=== PATIENT | female | born 1990 | race Two or more races ===

== ENCOUNTER 2024-04-29 06:43 | Inpatient (IN) | payer MEDICAID ==
[2024-04-29] MEDS ORDERED: Lidocaine 1% 50 ML MDV INJECT PRN (07:10)
[2024-04-29] MEDS ORDERED: Sodium Chloride 0.9% 10 ML Syringe FLUSH PRN (07:10)
[2024-04-29] MEDS ORDERED: Ondansetron 4 MG/2 ML SDV IVPUSH PRN (07:10)
[2024-04-29] MEDS ORDERED: Oxytocin/0.9 % Sodium Chloride 30 UNIT/500 ML BAG IV SCH (07:15)
[2024-04-29 07:46] LABS: BASOPHILS PERCENT AUTO 0.1 % (0.0-1.0); EOSINOPHILS ABSOLUTE AUTO 0.1 K/mm3 (0.0-0.4); EOSINOPHILS PERCENT AUTO 0.8 % (0.0-6.0); HEMATOCRIT 31.8 % (37.0-47.0); HEMOGLOBIN 10.2 gm/dl (12.0-16.0); IMMATURE GRAN ABSOLUTE AUTO 0.04 K/mm3 (0.00-0.05); IMMATURE GRAN PERCENT AUTO 0.5 % (0.0-0.4); LYMPHOCYTES ABSOLUTE AUTO 1.2 K/mm3 (1.0-4.8); LYMPHOCYTES PERCENT AUTO 14.6 % (24.0-44.0); MEAN CORPUSCULAR HEMOGLOBIN 26.9 pg (28.0-32.0); MEAN CORPUSCULAR HGB CONC 32.1 g/dl (32.0-36.0); MEAN CORPUSCULAR VOLUME 83.9 fl (83.0-99.0); MONOCYTES ABSOLUTE AUTO 0.7 K/mm3 (0.0-0.8); MONOCYTES PERCENT AUTO 8.4 % (0.0-8.0); NEUTROPHILS ABSOLUTE AUTO 6.4 K/mm3 (1.8-7.7); NEUTROPHILS PERCENT AUTO 75.6 % (41.0-71.0); PLATELET COUNT,PLT 147 K/mm3 (150-400); RED BLOOD CELL COUNT 3.79 M/mm3 (4.10-5.30); WHITE BLOOD CELL COUNT,WBC 8.45 K/mm3 (3.9-11.3)
[2024-04-29] MEDS: Misoprostol 25 MCG (1/4 of 100 MCG) Tab PO SCH (08:00)
[2024-04-29] MEDS: Lactated Ringers 1,000 ML IV SCH (13:00)
[2024-04-29] MEDS: Oxytocin/0.9 % Sodium Chloride 30 UNIT/500 ML BAG IV SCH (13:10)
[2024-04-29] MEDS: Nalbuphine 10 MG/1 ML Vial IVPUSH PRN (17:12)
[2024-04-29] MEDS: Bupivacaine/fentaNYL/NS 100 ML Bag EPIDUR PRN (21:23)
[2024-04-30] MEDS: ePHEDrine 50 MG/ML SDV IVPUSH PRN (01:19)
[2024-04-30] MEDS: Calcium Carbonate 500 MG Tab.Chew PO PRN (02:48)
[2024-04-30] MEDS: diphenhydrAMINE 50 MG/ML SDV IVPUSH PRN (03:57)
[2024-04-30] MEDS ORDERED: ceFAZolin 2 GM in Sodium Chloride 0.9% 50 ML IV ONE (07:31)
[2024-04-30] MEDS ORDERED: Azithromycin 500 MG in Sodium Chloride 0.9% 250 ML IV ONE (07:31)
[2024-04-30] MEDS ORDERED: Metoclopramide 10 MG/2 ML SDV IVPUSH ONE (07:31)
[2024-04-30] MEDS ORDERED: Citric Acid/Sodium Citrate Solution 30 ML Cup PO ONE (07:31)
[2024-04-30] MEDS ORDERED: ceFAZolin 2 GM Vial IVPUSH ONE (07:45)
[2024-04-30 14:31] LABS: PH,UMBILICAL ARTERIAL 7.23 (7.22-7.32)
[2024-04-30 14:32] LABS: BICARBONATE,ARTERIAL UMBILICAL 23.3 (24-26); BICARBONATE,VENOUS UMBILICAL 18.8 (19-24); PCO2 UMBILICAL ARTERIAL 57.4 (42-58); PCO2 UMBILICAL VENOUS 38.2 (32.8-38.6); PH,UMBILICAL VENOUS 7.31 (7.28-7.40)
[2024-04-30] MEDS: Ibuprofen 600 MG Tab PO SCH (16:43)
[2024-04-30] MEDS: Acetaminophen 325 MG Tab PO PRN (16:44)
[2024-04-30] MEDS: ceFAZolin 2 GM Vial IVPUSH ONE (20:04)
[2024-04-30] MEDS: Citric Acid/Sodium Citrate Solution 30 ML Cup PO ONE (20:04)
[2024-04-30] MEDS: Metoclopramide 10 MG/2 ML SDV IVPUSH ONE (20:05)
[2024-04-30] MEDS: Azithromycin 500 MG in Sodium Chloride 0.9% 250 ML IV ONE (20:05)
[2024-04-30] MEDS: Witch Hazel Medicated Pads 40/Jar TOP PRN (20:15)
[2024-04-30] MEDS: Benzocaine/Menthol 20%-0.5% Spray 78 GM Cannister TOP PRN (20:16)
[2024-05-01] MEDS: Ibuprofen 600 MG Tab PO SCH (00:03)
[2024-05-01] MEDS: Docusate Sodium 100 MG Cap PO PRN (20:55)
== END 2024-05-02 12:55 | disposition home or self-care (01) | DRG 807 ==
LOC: JD.OB 06:43 → OBSVTOIN 04-30 14:10 → JD.OB 04-30 14:44
PROVIDERS: ADMIT Obstetrics & Gynecology; ATTEND Obstetrics & Gynecology
PROC: 10D07Z6 Extraction of Products of Conception, Vacuum, Via Natural or Artificial Opening (ICD-10-PCS; principal; 2024-04-30)
PROC: 10907ZC Drainage of Amniotic Fluid, Therapeutic from Products of Conception, Via Natural or Artificial Opening (ICD-10-PCS; 2024-04-30)
PROC: 3E033VJ Introduction of Other Hormone into Peripheral Vein, Percutaneous Approach (ICD-10-PCS; 2024-04-30)
PROC: 0U7C7ZZ Dilation of Cervix, Via Natural or Artificial Opening (ICD-10-PCS; 2024-04-30)
PROC: 3E0R3BZ Introduction of Anesthetic Agent into Spinal Canal, Percutaneous Approach (ICD-10-PCS; 2024-04-30)
PROC: 00HU33Z Insertion of Infusion Device into Spinal Canal, Percutaneous Approach (ICD-10-PCS; 2024-04-30)
PROC: 3E0DXGC Introduction of Other Therapeutic Substance into Mouth and Pharynx, External Approach (ICD-10-PCS; 2024-04-30)
PROC: 4A033R1 Measurement of Arterial Saturation, Peripheral, Percutaneous Approach (ICD-10-PCS; 2024-04-30)
DX: O48.0 Post-term pregnancy (principal); Z37.0 Single live birth; O76 Abnormality in fetal heart rate and rhythm complicating labor and delivery; O26.893 Other specified pregnancy related conditions, third trimester; Z67.91 Unspecified blood type, Rh negative; Z3A.40 40 weeks gestation of pregnancy
CPT/HCPCS: 36415; 36600; 51701; 51702; 59025; 59409; 82803; 85025; 86592; A9270-GY; J1200; J2300; J3490; J7120; J7999